=== PATIENT | male | born 1980 | race Caucasian/White ===

== ENCOUNTER 2021-01-30 11:20 | Emergency (ER) | payer BC, OTHER ==
[~2021-01-30] VITALS: Ht 182.9 cm; Wt 61.2 kg
[2021-01-30 11:20] VITALS: BP_SYST 99
--- NOTE | 2021-01-30 11:20 | NUR ---
Patient triaged and placed in waiting room. VSS and patient appears in no acute distress at this time. Accompanied by SELF, awaiting available bed, and MD notified of need for MSE.
--- NOTE | 2021-01-30 12:31 | NUR ---
BROUGHT BACK TO BED #7 AND TRIAGED. REPORT GIVEN TO ASHANTI
--- NOTE | 2021-01-30 12:45 | NUR ---
Pt walked in to ER with c/o right abdominal pain radiating to flank and ribs. Pt was seen in urgent care and discharged, presents here stating he needs to have appendicitis ruled out. V/S stable, no acute distress noted.
--- NOTE | 2021-01-30 12:48 | NUR ---
ER at bedside examining patient.
--- NOTE | 2021-01-30 13:05 | NUR ---
Lab at bedside for blood draw.
[2021-01-30 13:42] LABS: BASOPHILS % (AUTO) 0.3 % (0.0-2.0); EOSINOPHILS % (AUTO) 0.7 % (0.0-4.0); HEMATOCRIT 41.8 % (36-54); HEMOGLOBIN 14.2 g/dL (14.0-18.0); LYMPHOCYTES % (AUTO) 17.7 % (20.5-51.5); MEAN CORPUSCULAR HEMOGLOBIN 32 pg (27-31); MEAN CORPUSCULAR HGB CONC 34 % (32-36); MEAN CORPUSCULAR VOLUME 93 fL (79.0-98.0); MONOCYTES # (AUTO) 0.4 K/uL (0.0-1.0); MONOCYTES % (AUTO) 7.5 % (1.7-9.3); NEUTROPHILS # (AUTO) 4.2 K/uL (1.8-7.7); NEUTROPHILS % (AUTO) 73.8 % (40.0-70.0); PLATELET COUNT (AUTO) 143 K/uL (130-430); WHITE BLOOD COUNT (AUTO) 5.7 K/uL (4.8-10.8)
[2021-01-30 13:44] LABS: BILIRUBIN,URINE NEGATIVE (NEGATIVE); BLOOD, URINE NEGATIVE (NEGATIVE); CLARITY/URINE CLEAR (CLEAR); COLOR,URINE YELLOW (YELLOW); GLUCOSE,URINE NEGATIVE (NEGATIVE); KETONES,URINE NEGATIVE (NEGATIVE); LEUKOCYTE ESTERASE ,URINE NEGATIVE (NEGATIVE); NITRITE, URINE NEGATIVE (NEGATIVE); PROTEIN URINE NEGATIVE (NEGATIVE); UROBILINOGEN,URINE 0.2 (0.2-1.0)
[2021-01-30 13:47] LABS: CREATININE 0.87 mg/dL (0.55-1.30); POTASSIUM 4.5 mmol/L (3.5-5.1)
[2021-01-30 13:53] LABS: ALBUMIN 3.8 g/dL (3.4-4.8); TOTAL BILIRUBIN 1.1 mg/dL (0.0-1.0)
--- NOTE | 2021-01-30 13:56 | NUR ---
Patient transported to radiology via wheelchair, accompanied by staff.
--- NOTE | 2021-01-30 14:12 | NUR ---
BROUGHT BACK TO BED #7 VIA AMBULATORY.
--- NOTE | 2021-01-30 16:30 | NUR ---
Patient given written and verbal discharge instructions and verbalizes understanding. ER MD discussed with patient the results and treatment provided. Patient in stable condition. ID arm band removed. No prescriptions given. Patient educated on pain management and to follow up with PMD. Pain Scale 0. Opportunity for questions provided and answered. Medication side effect fact sheet provided.
[2021-01-30 16:34] VITALS: BP_SYST 99
== END 2021-01-30 16:30 | disposition home or self-care (01) ==
LOC: SED 11:20
DX: R10.31 Right lower quadrant pain (principal)
CPT/HCPCS: 36415; 76700-TC; 80053; 81003; 83690; 85025; 99284